=== PATIENT | male | born 1945 | race Caucasian/White ===

== ENCOUNTER → 2019-11-21 | Outpatient (CLI) | payer MEDICARE ==
[~2019-11-21] MED LIST: AMLO10TA8 PO; ASPI-630 PO; DULO60CA6 PO; GABA-586 PO; HYDR-2145 PO; INSU100I13 SQ; LISI40TA PO; METF10007 PO; MULT-245 PO; NAPR220C4 PO; OMEG1CAP50 PO; SIMV20TA18 PO
[2019-11-21 10:00] VITALS: BP 127/65
== END | disposition home or self-care (01) ==
LOC: SURG 09:42
PROVIDERS: ATTEND Anesthesiology
DX: M48.061 Spinal stenosis, lumbar region without neurogenic claudication (principal); M47.816 Spondylosis without myelopathy or radiculopathy, lumbar region; I10 Essential (primary) hypertension; E11.9 Type 2 diabetes mellitus without complications; Z79.899 Other long term (current) drug therapy
CPT/HCPCS: 99214; G0463